=== PATIENT | male | born 1955 | race Caucasian/White ===

== ENCOUNTER 2021-09-11 09:58 | Outpatient (CLI) | payer OTHER ==
[~2021-09-11] VITALS: Ht 175.3 cm; Wt 99.8 kg
[2021-09-11] MEDS ORDERED: albuterol 2.5 MG/3 ML nebule NEB ONE (10:55)
== END 2021-09-11 23:59 | disposition home or self-care (01) ==
LOC: RT 09:58
PROVIDERS: ATTEND Chiropractor
DX: J44.9 Chronic obstructive pulmonary disease, unspecified (principal); J61 Pneumoconiosis due to asbestos and other mineral fibers; M47.814 Spondylosis without myelopathy or radiculopathy, thoracic region; Z79.899 Other long term (current) drug therapy
CPT/HCPCS: 71046; 94060; 94760; J7030; L3260